=== PATIENT | female | born 1990 | race Two or more races ===

== ENCOUNTER 2018-02-22 19:53 | Outpatient (CLI) | payer OTHER | END 2018-02-22 21:45 | disposition home or self-care (01) | LOC: M LDO 19:53 | DX: O36.8130 Decreased fetal movements, third trimester, not applicable or unspecified (principal); O26.853 Spotting complicating pregnancy, third trimester; Z3A.30 30 weeks gestation of pregnancy | CPT/HCPCS: G0463 ==

== ENCOUNTER 2018-05-01 15:42 | Outpatient (CLI) | payer OTHER ==
[2018-05-01 19:46] LABS: HEMATOCRIT 42.3 % (36.0-47.0); HEMOGLOBIN 14.7 g/dl (12.0-15.5); MEAN CORPUSCULAR HEMOGLOBIN 30.8 pg (27.0-33.0); MEAN CORPUSCULAR HGB CONC 34.8 g/dl (32.0-36.5); MEAN CORPUSCULAR VOLUME 88.7 fl (80.0-96.0); PLATELET COUNT, AUTOMATED 191 10^3/uL (150-450); RED BLOOD COUNT 4.77 10^6/uL (4.00-5.40); RED CELL DISTRIBUTION WIDTH 12.7 % (11.5-14.5); WHITE BLOOD COUNT 15.9 10^3/uL (4.0-10.0)
[2018-05-01] MEDS: ACETAMINOPHEN 325 MG TAB PO (19:54)
[2018-05-01 20:10] LABS: TOTAL PROTEIN,RANDOM URINE 8.2 MG/DL (0.0-12.0)
[2018-05-01 20:13] LABS: ALT/SGPT 15 U/L (12-78); AST/SGOT 15 U/L (7-37); BILIRUBIN,TOTAL 0.4 MG/DL (0.2-1.0); CREATININE FOR GFR 0.59 MG/DL (0.55-1.30); GLOMERULAR FILTRATION RATE > 60.0 (>60); LDH LACTATE DEHYDROGENASE 188 U/L (84-246); URIC ACID 6.1 MG/DL (2.6-6.0)
== END 2018-05-01 21:20 | disposition home or self-care (01) ==
LOC: M LDO 15:42
DX: O99.89 Other specified diseases and conditions complicating pregnancy, childbirth and the puerperium (principal); R51 Headache; R03.0 Elevated blood-pressure reading, without diagnosis of hypertension; Z3A.39 39 weeks gestation of pregnancy; Z86.69 Personal history of other diseases of the nervous system and sense organs
CPT/HCPCS: 59025

== ENCOUNTER 2018-05-04 10:58 | Inpatient (IN) | payer OTHER ==
[2018-05-04] MEDS: LACTATED RINGER'S 1000 ML IV (12:48)
[2018-05-04] MEDS: OXYTOCIN DRIP 30 UNITS in APPROPRIATE DILUENT 1 EA IV (12:48)
[2018-05-04 13:02] LABS: HEMATOCRIT 42.6 % (36.0-47.0); HEMOGLOBIN 14.8 g/dl (12.0-15.5); MEAN CORPUSCULAR HEMOGLOBIN 30.9 pg (27.0-33.0); MEAN CORPUSCULAR HGB CONC 34.7 g/dl (32.0-36.5); MEAN CORPUSCULAR VOLUME 88.9 fl (80.0-96.0); PLATELET COUNT, AUTOMATED 197 10^3/uL (150-450); RED BLOOD COUNT 4.79 10^6/uL (4.00-5.40); RED CELL DISTRIBUTION WIDTH 12.7 % (11.5-14.5); WHITE BLOOD COUNT 11.1 10^3/uL (4.0-10.0)
[2018-05-04] MEDS: VANCOMYCIN HCL 1,000 MG, VIAL MATE ADAPTER 1 EACH in D5W 250 ML IV (13:21)
[2018-05-04 13:35] LABS: ALT/SGPT 15 U/L (12-78); AST/SGOT 15 U/L (7-37); BILIRUBIN,TOTAL 0.3 MG/DL (0.2-1.0); CREATININE FOR GFR 0.67 MG/DL (0.55-1.30); GLOMERULAR FILTRATION RATE > 60.0 (>60); LDH LACTATE DEHYDROGENASE 187 U/L (84-246); URIC ACID 6.1 MG/DL (2.6-6.0)
[2018-05-04] MEDS: LR 1,000 ML IV ×2 (17:21→21:39)
[2018-05-04] MEDS: ONDANSETRON 4MG/2ML VIAL (J2405) IV (22:20)
[2018-05-04] MEDS ORDERED: FENTANYL 2MCG/ML ROPIVACAINE 0.2% IN 0.9% NACL 200ML IVBAG As Ordered (22:34)
[2018-05-04] MEDS ORDERED: FENTANYL/ROPIVACAINE/NACL BAG 200 ML EPIDURAL (23:45)
[2018-05-04] MEDS ORDERED: ePHEDrine SULFATE 25 MG/5 ML(5MG/ML) SYRINGE IV (23:45)
[2018-05-04] MEDS ORDERED: ONDANSETRON 4MG/2ML VIAL (J2405) IV (23:45)
[2018-05-04] MEDS ORDERED: EPIDURAL/PCA KEYS XX (23:45)
[2018-05-04] MEDS ORDERED: LACTATED RINGER'S 1000 ML IV (23:45)
[2018-05-04] MEDS ORDERED: NALOXONE INJ 0.4 MG/1 ML VIAL (J2310) IV (23:45)
[2018-05-04] MEDS ORDERED: REFRIGERATOR IV KEYS XX (23:45)
[2018-05-04] MEDS ORDERED: diphenhydrAMINE INJ 50MG/ML VIAL (J1200) IV (23:45)
[2018-05-04] MEDS ORDERED: EPIDURAL COMMENT XX (23:45)
[2018-05-05] MEDS: VANCOMYCIN HCL 1,000 MG, VIAL MATE ADAPTER 1 EACH in D5W 250 ML IV (00:08)
[2018-05-05] MEDS: LR 1,000 ML IV (03:40)
[2018-05-05] MEDS: LIDOCAINE 1% MDV 20ML VIAL INFIL (06:33)
[2018-05-05] MEDS: OXYTOCIN DRIP 30 UNITS in APPROPRIATE DILUENT 1 EA IV (06:49)
[2018-05-05] MEDS ORDERED: METOCLOPRAMIDE INJ 10MG/2ML VIAL (J2765) IV (07:00)
[2018-05-05] MEDS ORDERED: IBUPROFEN 800 MG TAB PO (07:00)
[2018-05-05] MEDS ORDERED: METHYLERGONOVINE MALEATE 0.2 MG TAB PO (07:00)
[2018-05-05] MEDS ORDERED: MEASLES,MUMPS,RUBELLA VACCINE INJ (MMR-II) (90707) SC (07:00)
[2018-05-05] MEDS: ACETAMINOPHEN TAB 650MG DOSE (2X325MG) PO (07:52)
[2018-05-05] MEDS: PRENATAL VITAMINS CHEWABLE TABLET PO (08:35)
[2018-05-05] MEDS: DOCUSATE SODIUM 100 MG CAP PO ×2 (08:35→19:57)
[2018-05-05] MEDS: DIBUCAINE 1% OINTMENT 30GM TOP (13:49)
[2018-05-06] MEDS: PRENATAL VITAMINS CHEWABLE TABLET PO (09:52)
[2018-05-06] MEDS: DOCUSATE SODIUM 100 MG CAP PO ×2 (09:52→19:54)
[2018-05-06 19:38] LABS: FETAL SCREEN PROF. 1 1
[2018-05-06] MEDS: RHOGAM 300 MCG (1500 IU) INJ (J2790) IM (19:56)
[2018-05-07] MEDS: PRENATAL VITAMINS CHEWABLE TABLET PO (08:42)
[2018-05-07] MEDS: DOCUSATE SODIUM 100 MG CAP PO (08:42)
== END 2018-05-07 11:10 | disposition home or self-care (01) | DRG 775 ==
LOC: M LDI 10:58 → M OBS 05-05 08:42
PROC: 3E033VJ Introduction of Other Hormone into Peripheral Vein, Percutaneous Approach (ICD-10-PCS; 2018-05-04)
PROC: 10E0XZZ Delivery of Products of Conception, External Approach (ICD-10-PCS; principal; 2018-05-05)
PROC: 0HQ9XZZ Repair Perineum Skin, External Approach (ICD-10-PCS; 2018-05-05)
DX: O13.4 Gestational [pregnancy-induced] hypertension without significant proteinuria, complicating childbirth (principal); O99.824 Streptococcus B carrier state complicating childbirth; O48.0 Post-term pregnancy; Z3A.40 40 weeks gestation of pregnancy; O70.0 First degree perineal laceration during delivery; Z37.0 Single live birth

== ENCOUNTER → 2022-09-22 | Outpatient (REF) | payer OTHER ==
[~2022-09-22] MED LIST: ACET1TAB55 PO; COLA100C5 PO; EVEN500C2 PO; IBUP-1114 PO; MAPA500T2 PO; NUPE1OIN2 TOP; PRENTAB PO
== END ==
LOC: M LAB REF 17:00 → M SFHCDERM 17:00
PROVIDERS: ATTEND Nurse Practitioner Family
DX: D48.9 Neoplasm of uncertain behavior, unspecified (principal)

== ENCOUNTER → 2022-10-21 | Outpatient (REF) | payer OTHER | LOC: M SFHCWAGY 17:41 | PROVIDERS: ATTEND Obstetrics & Gynecology | DX: Z12.4 Encounter for screening for malignant neoplasm of cervix (principal) | CPT/HCPCS: 87624; G0123 ==

== ENCOUNTER → 2022-11-28 | Outpatient (CLI) | payer OTHER ==
[2022-11-28 18:11] LABS: HEMATOCRIT 40.2 % (36.0-47.0); HEMOGLOBIN 13.2 g/dl (12.0-15.5); MEAN CORPUSCULAR HEMOGLOBIN 30.3 pg (27.0-33.0); MEAN CORPUSCULAR HGB CONC 32.8 g/dl (32.0-36.5); MEAN CORPUSCULAR VOLUME 92.4 fl (80.0-96.0); PLATELET COUNT, AUTOMATED 234 10^3/uL (150-450); RED BLOOD COUNT 4.35 10^6/uL (4.00-5.40); WHITE BLOOD COUNT 8.2 10^3/uL (4.0-10.0)
[2022-11-28 18:25] LABS: HEMOGLOBIN A1c 5.2 % (4.0-6.0)
[2022-11-28 18:32] LABS: ALBUMIN 3.9 G/DL (3.2-5.2); ALKALINE PHOSPHATASE 75 U/L (46-116); ALT/SGPT 12 U/L (7.0-40); AST/SGOT 18 U/L (<34); BILIRUBIN,TOTAL 0.5 MG/DL (0.3-1.2); BLOOD UREA NITROGEN 8 MG/DL (9-23); CALCIUM LEVEL 8.7 MG/DL (8.5-10.1); CARBON DIOXIDE LEVEL 30 MMOL/L (20-31); CHLORIDE LEVEL 104 MMOL/L (98-107); CREATININE FOR GFR 0.71 MG/DL (0.55-1.30); GLOMERULAR FILTRATION RATE > 60.0 (>60); GLUCOSE, FASTING 79 MG/DL (60-100); POTASSIUM SERUM 3.8 MMOL/L (3.5-5.1); SODIUM LEVEL 139 MMOL/L (136-145); THYROID STIMULATING HORMONE 0.722 uIU/ML (0.55-4.78); TOTAL PROTEIN 6.5 G/DL (5.7-8.2)
== END ==
LOC: M PLALAB 15:17
PROVIDERS: ATTEND Obstetrics & Gynecology
DX: Z31.69 Encounter for other general counseling and advice on procreation (principal)

== ENCOUNTER → 2022-12-16 | Outpatient (CLI) | payer OTHER | LOC: M WHC 10:08 | PROVIDERS: ATTEND Obstetrics & Gynecology | DX: N80.9 Endometriosis, unspecified (principal) ==

== ENCOUNTER → 2022-12-22 | Outpatient (CLI) | payer OTHER ==
[~2022-12-22] MED LIST changes: +ISOVUE-370 76% 100ML VIAL As Ordered ONE
== END ==
LOC: M RADPRO 11:25
PROVIDERS: ATTEND Obstetrics & Gynecology
DX: N97.9 Female infertility, unspecified (principal); Z87.59 Personal history of other complications of pregnancy, childbirth and the puerperium
CPT/HCPCS: 58340; 74740; Q9967

== ENCOUNTER → 2022-12-26 | Outpatient (CLI) | payer OTHER ==
[~2022-12-26] MED LIST changes: -ISOVUE-370 76% 100ML VIAL As Ordered ONE
== END ==
LOC: M WHC 13:10
PROVIDERS: ATTEND Obstetrics & Gynecology
DX: N64.4 Mastodynia (principal)
CPT/HCPCS: 76642; 77066; G0279

== ENCOUNTER → 2023-01-27 | Outpatient (REF) | payer OTHER | LOC: M SFHCDERM 17:41 | PROVIDERS: ATTEND Nurse Practitioner Family | DX: D22.61 Melanocytic nevi of right upper limb, including shoulder (principal); D22.5 Melanocytic nevi of trunk; D23.9 Other benign neoplasm of skin, unspecified; Z12.83 Encounter for screening for malignant neoplasm of skin; Z86.018 Personal history of other benign neoplasm; L90.5 Scar conditions and fibrosis of skin; D22.9 Melanocytic nevi, unspecified; D48.9 Neoplasm of uncertain behavior, unspecified; Z88.0 Allergy status to penicillin; Z88.2 Allergy status to sulfonamides; Z88.7 Allergy status to serum and vaccine | CPT/HCPCS: 11102; 11103; 11105; 88305; G0463 ==

== ENCOUNTER → 2023-03-23 | Outpatient (CLI) | payer OTHER ==
[~2023-03-23] MED LIST changes: +CO Q200C10 PO; +RA M500C PO; +VITA200016 PO; +[UNRECOGNIZED DRUG - OTHER] PO
[2023-03-23 14:56] LABS: BASO # 0.1 10^3/uL (0.0-0.2); BASO % 0.8 % (0.0-1.0); EOS # 0.3 10^3/uL (0.0-0.5); EOS % 3.8 % (0.0-3.0); HEMATOCRIT 45.5 % (36.0-47.0); HEMOGLOBIN 15.1 g/dl (12.0-15.5); LYMPH # 2.4 10^3/uL (1.5-5.0); LYMPH % 36.7 % (24.0-44.0); MEAN CORPUSCULAR HEMOGLOBIN 29.7 pg (27.0-33.0); MEAN CORPUSCULAR HGB CONC 33.2 g/dl (32.0-36.5); MEAN CORPUSCULAR VOLUME 89.4 fl (80.0-96.0); MONO # 0.6 10^3/uL (0.0-0.8); MONO % 9.7 % (2.0-8.0); NEUTROPHILS # 3.2 10^3/uL (1.5-8.5); NEUTROPHILS % 48.8 % (36.0-66.0); PLATELET COUNT, AUTOMATED 252 10^3/uL (150-450); RED BLOOD COUNT 5.09 10^6/uL (4.00-5.40); WHITE BLOOD COUNT 6.5 10^3/uL (4.0-10.0)
[2023-03-23 15:22] LABS: BLOOD UREA NITROGEN 14 MG/DL (9-23); CALCIUM LEVEL 8.9 MG/DL (8.5-10.1); CARBON DIOXIDE LEVEL 28 MMOL/L (20-31); CHLORIDE LEVEL 106 MMOL/L (98-107); CREATININE FOR GFR 0.76 MG/DL (0.55-1.30); GLOMERULAR FILTRATION RATE > 60.0 (>60); GLUCOSE, FASTING 86 MG/DL (60-100); POTASSIUM SERUM 4.6 MMOL/L (3.5-5.1); SODIUM LEVEL 140 MMOL/L (136-145)
== END ==
LOC: M PLALAB 11:00
PROVIDERS: ATTEND Plastic Surgery Surgery of the Hand
DX: D22.62 Melanocytic nevi of left upper limb, including shoulder (principal)

== ENCOUNTER 2023-03-30 08:29 | Day surgery (SDC) | payer OTHER ==
[~2023-03-30] VITALS: Ht 172.7 cm; Wt 95.3 kg
[2023-03-30] MEDS ORDERED: LR 1,000 ML IV SCH ×2 (09:15→11:45)
[2023-03-30] MEDS ORDERED: propofoL 200 MG/20 ML VIAL As Ordered ONE (09:31)
[2023-03-30] MEDS ORDERED: MIDAZOLAM INJ 2MG/2ML VIAL As Ordered ONE (09:31)
[2023-03-30] MEDS ORDERED: LIDOCAINE 2% INJ 100 MG/5 ML SYRINGE As Ordered ONE (09:31)
[2023-03-30] MEDS ORDERED: ONDANSETRON 4MG 2ML VIAL As Ordered ONE (09:31)
[2023-03-30] MEDS ORDERED: fentaNYL 100 MCG/2 ML INJECTION As Ordered ONE (09:32)
[2023-03-30] MEDS ORDERED: CIPROFLOXACIN 400 MG in IV 1 EA IV ONE (10:10)
[2023-03-30] MEDS ORDERED: METOCLOPRAMIDE INJ 10MG/2ML VIAL As Ordered ONE (10:34)
[2023-03-30] MEDS ORDERED: ACETAMINOPHEN 1000MG 100ML IV BAG As Ordered ONE (10:42)
[2023-03-30] MEDS ORDERED: LACRILUBE (AKWA TEARS) OPHTH OINT 3.5GM As Ordered ONE (10:42)
[2023-03-30] MEDS ORDERED: HYDROmorphone HCL 2MG/ML 1ML VIAL As Ordered ONE (10:55)
[2023-03-30] MEDS ORDERED: ePHEDrine SULFATE 25 MG/5 ML(5MG/ML) SYRINGE As Ordered ONE (11:08)
[2023-03-30] MEDS ORDERED: fentaNYL 100 MCG/2 ML INJECTION IV PRN (11:45)
[2023-03-30] MEDS ORDERED: ONDANSETRON 4MG 2ML VIAL IV PRN (11:45)
[2023-03-30] MEDS ORDERED: HYDROMORPHONE HCL 0.5 MG/ 0.5 ML SYRINGE IV PRN (11:45)
[2023-03-30] MEDS ORDERED: oxyCODONE 5MG TAB PO PRN (11:45)
[2023-03-30] MEDS ORDERED: diphenhydrAMINE 50MG/ML VIAL IV PRN (12:15)
[2023-03-30] MEDS ORDERED: diphenhydrAMINE 50MG/ML VIAL As Ordered ONE (12:16)
[2023-03-30 13:28] VITALS: BP 131/78; TEMP 97.6; O2SAT 97
== END 2023-03-30 13:33 | disposition home or self-care (01) ==
LOC: M SDC 08:29
PROVIDERS: ATTEND Plastic Surgery Surgery of the Hand
DX: L90.5 Scar conditions and fibrosis of skin (principal); D22.62 Melanocytic nevi of left upper limb, including shoulder; D22.5 Melanocytic nevi of trunk; Z88.0 Allergy status to penicillin; Z88.2 Allergy status to sulfonamides; Z91.040 Latex allergy status; Z88.7 Allergy status to serum and vaccine
CPT/HCPCS: 11401; 11402; 11406; 12032; 88305; C9290; J0131; J0744; J1100; J1170; J1200; J2250; J2405; J2765; J3010; S0020

== ENCOUNTER → 2025-05-16 | Outpatient (CLI) | payer OTHER ==
[2025-05-16 16:22] LABS: PLATELET COUNT, AUTOMATED 259 10^3/uL (150-450)
[2025-05-16 16:30] LABS: ESTIMATED AVERAGE GLUCOSE 100.0 MG/DL (60-110)
[2025-05-16 16:51] LABS: ALT/SGPT 11 U/L (7.0-40); AST/SGOT 15 U/L (<34); CALCIUM LEVEL 9.1 MG/DL (8.5-10.1); CARBON DIOXIDE LEVEL 26 MMOL/L (20-31); CHLORIDE LEVEL 104 MMOL/L (98-107); CREATININE FOR GFR 0.74 MG/DL (0.55-1.30); GLOMERULAR FILTRATION RATE > 90.0 (>60); POTASSIUM SERUM 4.3 MMOL/L (3.5-5.1); SODIUM LEVEL 143 MMOL/L (136-145)
[2025-05-16 16:54] LABS: TOTAL 25(OH) VITAMIN D 36.2 NG/ML (20.0-100.0)
[2025-05-16 16:55] LABS: PROLACTIN 12.57 NG/ML
[2025-05-16 16:58] LABS: T UPTAKE 33.4 % (22.5-37.0)
[2025-05-16 17:11] LABS: THYROXINE (T4) 8.4 UG/DL (4.5-10.9)
[2025-05-19 15:27] LABS: HERPES ZOSTER, VARICELLA IgG 4.66 S/CO (>=1.00)
== END ==
LOC: M PLALAB 13:09
PROVIDERS: ATTEND Obstetrics & Gynecology
DX: Z31.9 Encounter for procreative management, unspecified (principal)

== ENCOUNTER → 2025-05-22 | Outpatient (CLI) | payer OTHER ==
[2025-05-22 17:33] LABS: HCG, SERUM QUANTITATIVE < 2.6 MIU/ML (<4.2)
[2025-05-22 17:38] LABS: LUTEINIZING HORMONE 3.8 mIU/ML
[2025-05-22 17:39] LABS: ESTRADIOL 66.8 PG/ML
[2025-05-22 17:41] LABS: PROGESTERONE 0.43 NG/ML
== END ==
LOC: M PLALAB 15:46
PROVIDERS: ATTEND Obstetrics & Gynecology
DX: Z31.9 Encounter for procreative management, unspecified (principal)

== ENCOUNTER → 2025-05-27 | Outpatient (CLI) | payer OTHER | LOC: M WHC 14:06 | PROVIDERS: ATTEND Obstetrics & Gynecology | DX: Z31.9 Encounter for procreative management, unspecified (principal); N88.8 Other specified noninflammatory disorders of cervix uteri; N83.202 Unspecified ovarian cyst, left side ==

== ENCOUNTER → 2025-08-15 | Outpatient (CLI) | payer OTHER ==
[2025-08-15 09:49] LABS: HCG, SERUM QUANTITATIVE < 2.6 MIU/ML (<4.2)
[2025-08-15 09:53] LABS: PROGESTERONE 0.32 NG/ML
[2025-08-15 09:54] LABS: ESTRADIOL 126.4 PG/ML; LUTEINIZING HORMONE 7.7 mIU/ML
== END ==
LOC: M RAD 08:12
PROVIDERS: ATTEND Obstetrics & Gynecology Reproductive Endocrinology
DX: Z31.83 Encounter for assisted reproductive fertility procedure cycle (principal)

== ENCOUNTER → 2025-08-20 | Outpatient (CLI) | payer OTHER ==
[2025-08-20 09:57] LABS: LUTEINIZING HORMONE 3.9 mIU/ML
[2025-08-20 09:58] LABS: ESTRADIOL 113.4 PG/ML; PROGESTERONE 0.33 NG/ML
== END ==
LOC: M RAD 08:09
PROVIDERS: ATTEND Obstetrics & Gynecology Reproductive Endocrinology
DX: Z31.83 Encounter for assisted reproductive fertility procedure cycle (principal); N88.8 Other specified noninflammatory disorders of cervix uteri; N83.01 Follicular cyst of right ovary; N83.02 Follicular cyst of left ovary

== ENCOUNTER → 2025-08-22 | Outpatient (CLI) | payer OTHER ==
[2025-08-22 10:34] LABS: LUTEINIZING HORMONE 0.7 mIU/ML
[2025-08-22 10:35] LABS: ESTRADIOL 439.9 PG/ML; PROGESTERONE 0.34 NG/ML
== END ==
LOC: M RAD 08:45
PROVIDERS: ATTEND Obstetrics & Gynecology Reproductive Endocrinology
DX: Z31.83 Encounter for assisted reproductive fertility procedure cycle (principal)

== ENCOUNTER → 2025-09-04 | Outpatient (REF) | payer OTHER ==
[2025-09-04 11:09] LABS: ESTRADIOL 1712.9 PG/ML
[2025-09-04 11:30] LABS: PROGESTERONE 66.14 NG/ML
== END ==
LOC: M PLALAB 10:14
PROVIDERS: ATTEND Obstetrics & Gynecology Reproductive Endocrinology
DX: Z31.49 Encounter for other procreative investigation and testing (principal)

== ENCOUNTER → 2025-09-10 | Outpatient (CLI) | payer OTHER ==
[2025-09-10 10:58] LABS: HCG, SERUM QUANTITATIVE 130.9 MIU/ML (<4.2)
[2025-09-10 11:23] LABS: PROGESTERONE 127.67 NG/ML
== END ==
LOC: M PLALAB 07:40
PROVIDERS: ATTEND Obstetrics & Gynecology Reproductive Endocrinology
DX: Z32.00 Encounter for pregnancy test, result unknown (principal)

== ENCOUNTER → 2025-09-15 | Outpatient (CLI) | payer OTHER ==
[2025-09-15 10:29] LABS: HCG, SERUM QUANTITATIVE 525.1 MIU/ML (<4.2)
[2025-09-15 10:33] LABS: ESTRADIOL 1872.1 PG/ML
[2025-09-15 10:52] LABS: PROGESTERONE 142.9 NG/ML
== END ==
LOC: M PLALAB 07:59
PROVIDERS: ATTEND Obstetrics & Gynecology Reproductive Endocrinology
DX: Z32.01 Encounter for pregnancy test, result positive (principal)

== ENCOUNTER → 2025-09-22 | Outpatient (CLI) | payer OTHER ==
[2025-09-22 09:02] LABS: ESTRADIOL 1846.2 PG/ML
[2025-09-22 09:21] LABS: PROGESTERONE 143.81 NG/ML
== END ==
LOC: M RAD 07:26
PROVIDERS: ATTEND Obstetrics & Gynecology Reproductive Endocrinology
DX: Z32.01 Encounter for pregnancy test, result positive (principal); Z3A.01 Less than 8 weeks gestation of pregnancy

== ENCOUNTER → 2025-09-29 | Outpatient (CLI) | payer OTHER ==
[2025-09-29 09:32] LABS: ESTRADIOL 1575.4 PG/ML
[2025-09-29 09:51] LABS: PROGESTERONE 134.1 NG/ML
== END ==
LOC: M RAD 07:47
PROVIDERS: ATTEND Obstetrics & Gynecology Reproductive Endocrinology
DX: O09.00 Supervision of pregnancy with history of infertility, unspecified trimester (principal)